=== PATIENT | male | born 1960 | race African-American/Black ===

== ENCOUNTER 2023-09-03 03:53 | Day surgery (SDC) | payer BC ==
[2023-09-03 11:10] VITALS: BMI 25.5
[2023-09-03] MEDS ORDERED: ceFAZolin SODIUM 1 GM VIAL ONE (11:26)
[2023-09-03] MEDS ORDERED: PROPOFOL 20 ML ONE ×2 (12:19→14:09)
[2023-09-03] MEDS ORDERED: ROCURONIUM BROMIDE 50 MG/5 ML SYRINGE ONE ×2 (12:24→15:02)
[2023-09-03] MEDS ORDERED: LIDOCAINE HCL/PF 2% SDV 5ML VIAL ONE (12:24)
[2023-09-03] MEDS ORDERED: BUPIVACAINE HCL/PF 0.25% (2.5MG/ML) 10 ML VIAL ONE (12:36)
[2023-09-03] MEDS ORDERED: ONDANSETRON 4 MG/2 ML VIAL IVPUSH PRN (12:53)
[2023-09-03] MEDS ORDERED: oxyCODONE HCL 5 MG TABLET PO PRN (12:53)
[2023-09-03] MEDS ORDERED: CEFAZOLIN SODIUM 2 GM in DEXTROSE 5%-WATER 100 ML IVPB ONE (13:00)
[2023-09-03] MEDS ORDERED: MIDAZOLAM HCL 2 MG/2 ML SINGLE DOSE VIAL ONE (13:16)
[2023-09-03] MEDS ORDERED: HYDROmorphone HCl 2 MG/ML VIAL ONE (13:16)
[2023-09-03] MEDS: cefOXitin SODIUM 2 GM VIAL (RESTRICTED TO ID) IVPB ONE (13:30)
[2023-09-03] MEDS ORDERED: cefOXitin SODIUM 2 GM VIAL (RESTRICTED TO ID) IVPB ONE (13:43)
[2023-09-03] MEDS ORDERED: DEXAMETHASONE SOD PHOSPHATE 4 MG/1 ML VIAL ONE (13:46)
[2023-09-03] MEDS ORDERED: ONDANSETRON 4 MG/2 ML VIAL ONE (13:46)
[2023-09-03] MEDS ORDERED: GLYCOPYRROLATE 0.2 MG/1 ML VIAL ONE (14:02)
[2023-09-03] MEDS: BUPIVACAINE HCL/PF 0.25% (2.5MG/ML) 10 ML VIAL IJ ONE (14:52)
[2023-09-03] MEDS ORDERED: MAGNESIUM SULF 50% (8.12 MEQ/2 ML-1 GM VIAL) ONE (14:55)
[2023-09-03] MEDS ORDERED: SUGAMMADEX SODIUM 200 MG/2 ML VIAL ONE (15:36)
[2023-09-03] MEDS ORDERED: KETOROLAC TROMETHAMINE 30 MG/1 ML VIAL ONE (15:36)
[2023-09-03] MEDS ORDERED: ACETAMINOPHEN INJECTION 100 ML IVPB ONE (16:13)
[2023-09-03] MEDS: ACETAMINOPHEN 1000 MG/100 ML BAG IVPB ONE (16:15)
[2023-09-03] MEDS ORDERED: FENTANYL CITRATE/PF 50 MCG/ML VIAL ONE (17:00)
[2023-09-03] MEDS: LACTATED RINGERS SOLUTION 1,000 ML IV SCH (17:38)
[2023-09-03 19:55] VITALS: BP 136/77; PULSE 88; RESP 18; TEMP 98.2
== END 2023-09-03 19:50 | disposition home or self-care (01) ==
LOC: JASU-SURG 03:53
PROVIDERS: ATTEND Surgery
PROC: 0FT44ZZ Resection of Gallbladder, Percutaneous Endoscopic Approach (ICD-10-PCS; principal; 2023-09-03 13:00)
DX: K81.2 Acute cholecystitis with chronic cholecystitis (principal)
CPT/HCPCS: 47562; S2900; 82962; 86850; 86900; 86901; 88304-TC; 94760; J0131